=== PATIENT | male | born 1950 | race Caucasian/White ===

== ENCOUNTER 2018-08-19 08:33 | Day surgery (SDC) | payer MEDICARE, MEDICAID ==
[2018-08-14 13:15] VITALS: BMI 27.1
[2018-08-19 09:11] LABS: BASO # 0.04 K/mm3 (0.0-2.0); BASO % 0.6 % (0.0-3.0); EOS # 0.2 (0.0-0.7); EOS % 2.8 % (1.5-5.0); GRAN # 3.97 (1.4-6.5); GRAN % 62.4 % (50.0-68.0); HEMOGLOBIN 12.1 g/dL (14.0-18.0); LYMPH # 1.9 (1.2-3.4); LYMPH % 29.5 % (22.0-35.0); MEAN CELL VOLUME 94.5 fl (80.0-105.0); MEAN CORPUSCULAR HEMOGLOBIN 30.4 pg (25.0-35.0); MEAN CORPUSCULAR HGB CONC 32.2 g/dl (31.0-37.0); MEAN PLATELET VOLUME 10.5 fl (7.0-11.0); MONO # 0.3 (0.1-0.6); MONO % 4.7 % (1.0-6.0); RBC 3.98 10^6/uL (3.5-6.1); RED CELL DISTRIBUTION WIDTH 11.9 % (11.5-14.5); WHITE BLOOD COUNT 6.4 10^3/uL (4.5-11.0)
[2018-08-19 09:14] LABS: INR 0.98; PARTIAL THROMBOPLASTIN TIME 27.1 Seconds (25.1-36.5); PROTHROMBIN TIME 11.3 SECONDS (9.4-12.5)
[2018-08-19 09:24] LABS: CALCIUM 8.7 mg/dL (8.4-10.5)
[2018-08-19] MEDS ORDERED: Lidocaine 2% Inj (20ml) ONE (13:44)
[2018-08-19] MEDS ORDERED: Iodixanol 320 MG/ML 200 ML BOTTLE IV ONE (13:50)
[2018-08-19] MEDS ORDERED: Midazolam 2 MG/2 ML VIAL ONE ×2 (14:09→14:21)
--- NOTE | 2018-08-19 15:42 | VASCULAR ---
PROCEDURE: Bilateral selective renal arteriogram HISTORY: Poorly controlled hypertension. Renal insufficiency. Small right kidney. Evaluate for renal artery stenosis and ischemic nephropathy PHYSICIAN(S): Cortez Fernandes MD. TECHNIQUE: The relative risks and indications of the procedure were explained to the patient and consent obtained. The patient was hydrated prior to the procedure and the appropriate labs drawn. The patient was placed supine on the arteriogram table and the right groin prepped and draped in the usual sterile fashion. Conscious sedation and monitoring were provided throughout the procedure by a nurse. Via a right common femoral artery approach, a 5 [place] sheath was placed in the right groin. Through the sheath and over a guidewire, a 5 [place] flush catheter was placed in the abdominal aorta at the level of the renal arteries and a PA DSA abdominal aortogram performed. The catheter was exchanged for a 5 [place] African C2 catheter which was placed selectively in both renal arteries. Bilateral selective renal artery angiograms were obtained. The sheath was removed hemostasis obtained with a Perclose device. The patient tolerated the procedure well FINDINGS: There are single renal arteries bilaterally. The right kidney is smaller than the left. The left renal artery is widely patent. There is mild 30 percent disease of the proximal right renal artery. IMPRESSION: 1. No radiographic evidence of significant renal artery stenosis. 2. Small right kidney.
[2018-08-19] MEDS: Sodium Chloride 0.45% 1,000 ML IV SCH (16:30)
[2018-08-20 06:26] VITALS: RESP 18
[2018-08-20 06:27] VITALS: O2SAT 97
[2018-08-20 08:01] LABS: CALCIUM 8.6 mg/dL (8.4-10.5)
[2018-08-20] MEDS: Sodium Chloride 0.45% 1,000 ML IV SCH (09:27)
[2018-08-20 11:51] VITALS: BP 119/72; PULSE 65; TEMP 98
--- NOTE | 2018-08-20 19:43 | CON ---
DATE: 08/20/2018 REASON FOR CONSULTATION: Chronic kidney disease stage III, small right kidney, status post renal angiogram. HISTORY OF PRESENT ILLNESS: A 67-year-old male known to me from outpatient followup. The patient was found to have a small right kidney. He recently had a CABG. He reports that the renal function was normal prior to that. The patient was brought in for a renal angiogram. The patient underwent renal angiogram yesterday. He was hydrated pre procedure. The angiogram revealed wide open renal arteries. Currently, he is lying in bed. He is comfortable. PAST MEDICAL AND SURGICAL HISTORY: Hypertension, CAD, CABG, small right kidney. FAMILY HISTORY: Hypertension. SOCIAL HISTORY: No smoking, no alcohol use, no IV drug abuse. ALLERGIES: NO KNOWN DRUG ALLERGIES. MEDICATIONS: Ecotrin, Imdur, Lipitor, Lopressor 25 b.i.d., Neurontin, Pepcid, Plavix, half-normal saline at 80, Tylenol. REVIEW OF SYSTEMS: All systems are reviewed, pertinent positives as mentioned in the history of presenting illness, rest unremarkable. PHYSICAL EXAMINATION: GENERAL: Elderly male, lying in bed, in no acute distress. VITAL SIGNS: Blood pressure 119/72, heart rate 65, respiratory rate 18, temperature 98. HEENT: Normocephalic, atraumatic, positive pallor, no icterus. NECK: Supple, no JVD. LUNGS: Bilateral equal entry, bilateral equal expansion, no rales. CARDIAC: S1 and S2, regular rate and rhythm. No murmur, no rub. ABDOMEN: Soft, nondistended, nontender, bowel sounds present. EXTREMITIES: No lower extremity edema. INTAKE AND OUTPUT: 1085/1550. LABORATORY DATA: WBC 6.4, hemoglobin 12, hematocrit 37.6, platelets 300. Sodium 137, potassium 4.8, chloride 105, CO2 of 26, BUN 19, creatinine 1.7, it went down from 1.9. ASSESSMENT AND PLAN: 1. Stable chronic kidney disease stage III. 2. Status post renal angiogram, no evidence of renal artery stenosis. 3. Small right kidney. 4. Hypertension. 5. Coronary artery disease. PLAN: 1. Renal parameters are stable, 2. Hypertension is well controlled. 3. Discharge home. Blanche Sam MD [facility] # [id number]
== END 2018-08-20 14:36 | disposition home or self-care (01) ==
LOC: SDSVAS 08:33 → 2RSO 16:21 → SDSVAS 08-20 14:36
PROVIDERS: ATTEND Radiology Vascular & Interventional Radiology
DX: I12.9 Hypertensive chronic kidney disease with stage 1 through stage 4 chronic kidney disease, or unspecified chronic kidney disease (principal); N18.3 Chronic kidney disease, stage 3 (moderate); E11.22 Type 2 diabetes mellitus with diabetic chronic kidney disease; E78.00 Pure hypercholesterolemia, unspecified; N27.0 Small kidney, unilateral; I25.10 Atherosclerotic heart disease of native coronary artery without angina pectoris; Z79.82 Long term (current) use of aspirin; Z79.899 Other long term (current) drug therapy; Z95.1 Presence of aortocoronary bypass graft

== ENCOUNTER 2018-10-30 09:29 | Observation (INO) | payer MEDICARE, MEDICAID ==
[2018-10-30 09:32] VITALS: BMI 23.8
[2018-10-30 10:20] LABS: BASO # 0.03 K/mm3 (0.0-2.0); BASO % 0.4 % (0.0-3.0); EOS # 0.2 (0.0-0.7); EOS % 3.2 % (1.5-5.0); GRAN # 5.23 (1.4-6.5); GRAN % 71.8 % (50.0-68.0); HEMOGLOBIN 11.9 g/dL (14.0-18.0); LYMPH # 1.5 (1.2-3.4); LYMPH % 20.1 % (22.0-35.0); MEAN CELL VOLUME 93.9 fl (80.0-105.0); MEAN CORPUSCULAR HEMOGLOBIN 30.1 pg (25.0-35.0); MEAN CORPUSCULAR HGB CONC 32.1 g/dl (31.0-37.0); MEAN PLATELET VOLUME 10.2 fl (7.0-11.0); MONO # 0.3 (0.1-0.6); MONO % 4.5 % (1.0-6.0); RBC 3.95 10^6/uL (3.5-6.1); RED CELL DISTRIBUTION WIDTH 12.5 % (11.5-14.5); WHITE BLOOD COUNT 7.3 10^3/uL (4.5-11.0)
[2018-10-30 10:21] LABS: ALB/GLOB RATIO 1.3 (1.1-1.8); ALBUMIN 4.2 g/dL (3.0-4.8); ALT/SGPT 26 U/L (7-56); AST/SGOT 27 U/L (17-59); BLOOD UREA NITROGEN 29 mg/dL (7-21); CALCIUM 9.1 mg/dL (8.4-10.5); GFR NON-AFRICAN AMERICAN 43
[2018-10-30 10:22] LABS: INR 0.94; PARTIAL THROMBOPLASTIN TIME 24.9 Seconds (25.1-36.5); PROTHROMBIN TIME 10.8 SECONDS (9.4-12.5)
[2018-10-30 10:32] LABS: B-TYPE NATRIURETIC PEPTIDE 229 pg/mL (0-450); TROPONIN I < 0.01 ng/mL
--- NOTE | 2018-10-30 10:38 | RAD ---
Date of service: 10/30/2018 HISTORY: chest pain COMPARISON: No prior. FINDINGS: LUNGS: No active pulmonary disease. PLEURA: No significant pleural effusion identified, no pneumothorax apparent. CARDIOVASCULAR: No aortic atherosclerotic calcification present. Normal cardiac size. No pulmonary vascular congestion. OSSEOUS STRUCTURES: Sternal wires VISUALIZED UPPER ABDOMEN: Normal. OTHER FINDINGS: None. IMPRESSION: No active disease.
[2018-10-30] MEDS ORDERED: Sodium Chloride 0.9% 1,000 ML IV STA (11:01)
--- NOTE | 2018-10-30 11:12 | ED PDOC ---
Arrival/HPI - General Chief Complaint: Chest Pain Time Seen by Provider: 10/30/18 09:36 Historian: Patient - History of Present Illness Narrative History of Present Illness (Text): 10/30/18 12:08 68yo male with pmhx of hypertension, Diabetes, CAD s/p cardiac bypass bib EMS with complaint of dizziness nausea/vomiting and chest pain since this morning. Notes intermittent history of chest pain. states he started having dizziness this morning when he stood up and it persisted when he sat down. Describe dizziness as spinning sensation and then vomited x1. Denies previous history. Denies tinnitus, recent URI symptoms, diaphoresis, headache, focal weakness, abdominal pain, tearing/ripping upper back pain, nuchal ridigty, neck pain, any other complaint. Past Medical History - Provider Review Nursing Documentation Reviewed: Yes - Infectious Disease Hx of Infectious Diseases: None - Tetanus Immunization Tetanus Immunization: Unknown - Cardiac Hx Cardiac Disorders: Yes Hx Hypertension: Yes - Pulmonary Hx Respiratory Disorders: No - Neurological Hx Neurological Disorder: No - HEENT Hx HEENT Disorder: No - Renal Hx Renal Disorder: No - Endocrine/Metabolic Hx Diabetes Mellitus Type 2: Yes - Hematological/Oncological Hx Blood Disorders: No - Integumentary Hx Dermatological Disorder: No - Musculoskeletal/Rheumatological Hx Musculoskeletal Disorders: No - Gastrointestinal Hx Gastrointestinal Disorders: No - Genitourinary/Gynecological Hx Genitourinary Disorders: No - Psychiatric Hx Psychophysiologic Disorder: No Hx Substance Use: No - Surgical History Hx Coronary Artery Bypass Graft: Yes (double bypass last yr 2017) Other/Comment: nasal surgery 1999 - Anesthesia Hx Anesthesia: Yes Hx Anesthesia Reactions: No Hx Malignant Hyperthermia: No - Suicidal Assessment Feels Threatened In Home Enviroment: No Family/Social History - Physician Review Nursing Documentation Reviewed: Yes Family/Social History: Unknown Family HX Smoking Status: Current Some Days Smoker Hx Alcohol Use: No Hx Substance Use: No Hx Substance Use Treatment: No Allergies/Home Meds Allergies/Adverse Reactions: Allergies No Known Allergies Allergy (Verified 10/27/14 20:20) Home Medications: Home Meds Medication Instructions Recorded Confirmed Aspirin [Ecotrin] 81 mg PO DAILY 08/14/18 10/30/18 Atorvastatin [Lipitor] 40 mg PO DAILY 08/14/18 10/30/18 Dulaglutide [Trulicity] 0.75 mg SC MON 08/14/18 10/30/18 Isosorbide Mononitrate [Isosorbide 30 mg PO DAILY 08/14/18 10/30/18 Mononitrate ER] Clopidogrel [Plavix] 75 mg PO DAILY 08/19/18 10/30/18 Famotidine [Pepcid] 20 mg PO DAILY 08/19/18 10/30/18 Gabapentin [Neurontin] 100 mg PO TID 08/19/18 10/30/18 Metoprolol Tartrate [Lopressor] 1 tab PO BID 08/19/18 10/30/18 Review of Systems - Physician Review All systems were reviewed & negative as marked: Yes - Review of Systems Constitutional: Normal Eyes: Normal ENT: Normal Respiratory: Normal Cardiovascular: Chest Pain. absent: Palpitations, Edema, Calf Pain, [place] Gastrointestinal: Normal Genitourinary Male: Normal Musculoskeletal: Normal Skin: Normal Neurological: Dizziness Endocrine: Normal Hemo/Lymphatic: Normal Psychiatric: Normal Physical Exam Vital Signs Reviewed: Yes Vital Signs Temp Pulse Resp BP Pulse Ox 10/30/18 09:38 97.5 F L 68 18 134/67 95 Temperature: Afebrile Blood Pressure: Normal Pulse: Regular Respiratory Rate: Normal Appearance: Positive for: Well-Appearing, Non-Toxic, Comfortable Pain Distress: None Mental Status: Positive for: Alert and Oriented X 3 - Systems Exam Head: Present: Atraumatic, Normocephalic Pupils: Present: PERRL Extroacular Muscles: Present: EOMI Conjunctiva: Present: Normal Mouth: Present: Moist Mucous Membranes Neck: Present: Normal Range of Motion Respiratory/Chest: Present: Clear to Auscultation, Good Air Exchange. No: Respiratory Distress, Accessory Muscle Use, Wheezes, Decreased Breath Sounds, Rales, Retracting, Rhonchi Cardiovascular: Present: Regular Rate and Rhythm, Normal S1, S2. No: Murmurs Abdomen: No: Tenderness, Distention, Peritoneal Signs Back: Present: Normal Inspection Upper Extremity: Present: Normal Inspection. No: Cyanosis, Edema Lower Extremity: Present: Normal Inspection. No: Edema Neurological: Present: GCS=15, CN II-XII Intact, Speech Normal, Motor Func Grossly Intact, Normal Sensory Function, Memory Normal, Other (No focal neurological deficit) Skin: Present: Warm, Dry, Normal Color. No: Rashes Psychiatric: Present: Alert, Oriented x 3, Normal Insight, Normal Concentration Medical Decision Making ED Course and Treatment: 10/30/18 12:13 68yo male in ED for dizziness, vomiting and chest pain since this morning Labs EKG Orthostatic htn Heart monitor chest xray Head CT ASA, Saline Labs was reviewed and mildly elevated Cr. was at his baseline. K of 5.2 notes at this time. Normal CE noted. Chest xray IMPRESSION: No active disease. EKG NSR @ 65bpm Head CT IMPRESSION: No evidence of acute intracranial hemorrhage mass effect or midline shift. Diffuse sinuses mucosal disease and complete opacification of the frontal sinuses suggestive of sinusitis. Pt was admitted for further evaluation to r/o neuro or cardiac cause of his symptoms. Case was DW Dr. Link and she accepted the pt for admission and saw the pt by the bedside. - Lab Interpretations Lab Results: PT 10.8 SECONDS (9.4-12.5) 10/30/18 10:00 INR 0.94 10/30/18 10:00 APTT 24.9 Seconds (25.1-36.5) L 10/30/18 10:00 Troponin I < 0.01 ng/mL 10/30/18 10:00 NT-Pro-B Natriuret Pep 229 pg/mL (0-450) 10/30/18 10:00 Total Bilirubin 0.6 mg/dL (0.2-1.3) 10/30/18 10:00 AST 27 U/L (17-59) 10/30/18 10:00 ALT 26 U/L (7-56) 10/30/18 10:00 Alkaline Phosphatase 54 U/L (38-126) 10/30/18 10:00 Total Protein 7.4 g/dL (5.8-8.3) 10/30/18 10:00 Albumin 4.2 g/dL (3.0-4.8) 10/30/18 10:00 Globulin 3.2 gm/dL 10/30/18 10:00 Albumin/Globulin Ratio 1.3 (1.1-1.8) 10/30/18 10:00 - RAD Interpretation Radiology Orders: 10/30/18 09:47 CHEST PORTABLE [RAD] Stat - Medication Orders Current Medication Orders: Sodium Chloride (Sodium Chloride 0.9%) 1,000 mls @ 100 mls/hr IV .Q10H STA Stop: 10/30/18 21:00 Discontinued Medications Aspirin (Aspirin) 325 mg PO ONCE ONE Stop: 10/30/18 11:02 Disposition/Present on Arrival - Present on Arrival Any Indicators Present on Arrival: No History of DVT/PE: No History of Uncontrolled Diabetes: No Urinary Catheter: No History of Decub. Ulcer: No History Surgical Site Infection Following: None - Disposition Have Diagnosis and Disposition been Completed?: Yes Diagnosis: Chest pain, Dizziness, Renal insufficiency, Sinusitis Disposition: HOSPITALIZED Disposition Time: 11:05 Condition: FAIR
--- NOTE | 2018-10-30 11:54 | CARD ---
APPROVED REPORT Date of service: 10/30/2018 EKG Measurement Heart [id number] <Conclusion> Normal sinus rhythm Normal ECG
--- NOTE | 2018-10-30 12:13 | CT ---
Date of service: 10/30/2018 PROCEDURE: CT HEAD WITHOUT CONTRAST. HISTORY: dizziness COMPARISON: None available. TECHNIQUE: Axial computed tomography images were obtained through the head/brain without intravenous contrast. Radiation dose: Total exam DLP = 1032.99 mGy-cm. This CT exam was performed using one or more of the following dose reduction techniques: Automated exposure control, adjustment of the mA and/or kV according to patient size, and/or use of iterative reconstruction technique. FINDINGS: HEMORRHAGE: No intracranial hemorrhage. BRAIN: No mass effect or edema. Mild volume loss and mild white matter changes likely represent chronic microvascular ischemic disease noted. VENTRICLES: Unremarkable. No hydrocephalus. CALVARIUM: Unremarkable. PARANASAL SINUSES: Zhbs-[id number]-[id number] mucosal thickening noted in the ethmoid maxillary and sphenoid sinuses. There is complete opacification of the frontal sinuses consistent with sinusitis. MASTOID AIR CELLS: Unremarkable as visualized. No inflammatory changes. OTHER FINDINGS: None. IMPRESSION: No evidence of acute intracranial hemorrhage mass effect or midline shift. Diffuse sinuses mucosal disease and complete opacification of the frontal sinuses suggestive of sinusitis.
[2018-10-30] MEDS: cefTRIAXone 1 gm 1 GM/100 ML BAG IVPB SCH (13:08)
[2018-10-30 14:33] LABS: URINE BILIRUBIN NEGATIVE (NEGATIVE); URINE BLOOD NEGATIVE (NEGATIVE); URINE GLUCOSE (UA) NEGATIVE (NEGATIVE); URINE LEUKOCYTE ESTERASE NEGATIVE Leu/uL (NEGATIVE); URINE PROTEIN NEGATIVE mg/dL (<30 mg/dL); URINE UROBILINOGEN 0.2 E.U./dL (<1 E.U./dL)
[2018-10-30 14:34] LABS: URINE APPEARANCE CLEAR (CLEAR); URINE COLOR YELLOW (YELLOW)
--- NOTE | 2018-10-30 15:10 | US ---
PROCEDURE: Bilateral carotid artery duplex ultrasound HISTORY: Carotid stenosis syncope PHYSICIAN(S): Cortez Fernandes MD. TECHNIQUE: Duplex sonography and color-flow Doppler were used to evaluate the carotid bifurcations and limited segments of the vertebral arteries bilaterally. FINDINGS: There is mild to moderate diffuse smooth heterogeneous plaque noted at the carotid bifurcations bilaterally. The peak systolic velocity in the proximal right internal carotid artery is 103 cm/sec. This corresponds to a 20 to 39% proximal right ICA stenosis. Normal systolic velocities are noted in the proximal right external carotid artery. There is antegrade flow in the right vertebral artery. The peak systolic velocity in the proximal left internal carotid artery is 119 cm/sec. This corresponds to a 40-59 percent proximal left ICA stenosis. Normal systolic velocities are noted in the proximal left external carotid artery. There is antegrade flow in the left vertebral artery. IMPRESSION: 1. 40-59 percent proximal left ICA stenosis. 2. 20-39 percent proximal right ICA stenosis. 3. Antegrade flow in both vertebral arteries
[2018-10-30] MEDS: Insulin Lispro (humaLOG) MEDIUM Coverage SC SCH ×2 (17:23→22:19)
--- NOTE | 2018-10-30 17:37 | CON ---
DATE: 10/30/2018 CHIEF COMPLAINT: Dizziness. HISTORY OF PRESENT ILLNESS: A 68-year-old man with history of type 2 diabetes mellitus, hypertension, coronary artery disease status post cardiac bypass, and on aspirin, Plavix, and atorvastatin. He came with dizziness, and sitting position and had vomited once with intermittent chest pain. He denied any focal weakness with extremities. No change in sense of vision, taste, or smell. His dizziness is somewhat improved. He is not eating. High potassium of 5.2 and BUN and creatinine elevation of 1.6 likely secondary dehydration from vomiting. Carotid Doppler show 49% to 59% possible proximal left ICA stenosis in 29% to 39% proximal right aortic stenosis with anterior arteries. CAT scan of the head showed no acute intracranial abnormalities. PAST MEDICAL HISTORY: As above. SOCIAL HISTORY: No illicit drug use, smoking or EtOH abuse. ALLERGIES: NO KNOWN DRUG ALLERGIES. FAMILY HISTORY: Noncontributory. MEDICATIONS: Reviewed by nurses' reconciliation sheet. REVIEW OF SYSTEMS: A 14-point review of systems is negative except as per HPI. LABORATORY DATA: Sodium is 141, potassium 5.2, chloride 104 carbon dioxide 29, BUN of 39, creatinine 1.6, and random glucose 135. PHYSICAL EXAMINATION GENERAL: The patient is up in bed and in no acute distress. VITAL SIGNS: Temperature 97.5, pulse rate of 66, blood pressure 137/90, respiratory rate of 18 and oxygen saturation of 97% on room air. HEENT: Atraumatic and normocephalic. PERRLA. Extraocular muscles intact. NECK: Supple. No JVD. No adenopathy noted. LUNGS: Clear to auscultation. No adventitious sounds. HEART: S1 and S2 normal. Normal rate and rhythm. No murmurs, rubs or gallops. ABDOMEN: Soft, nontender and nondistended. Bowel sounds are present. EXTREMITIES: No clubbing and no cyanosis. Peripheral pulses are 2+ felt bilaterally. NEUROLOGICAL: The patient is alert and oriented to person, place, month, and year. Speech is fluent without any errors. Cranial nerves II through XII are intact. Motor exam; moves all extremities equally. Toes are downgoing bilaterally. Sensory; decreased light touch and pinprick up to the calves bilaterally and decreased vibration of the toes. DTRs are 2+ throughout and 1 at both knees and absent at the ankles. Coordination; tlakoh-[id number]-[id number] is intact. No dysmetria noted. Gait is deferred for now. IMPRESSION: Dizziness is more of a positional vertigo, which was associated with vomiting. RECOMMENDATIONS: 1. Meclozine 25 mg p.o. b.i.d. for onset of dizziness and in addition possible outpatient vestibular therapy. 2. Keep blood sugar to 140 to 180. 3. Given the patient has some diabetic neuropathy, I recommend diabetic diet and continue with gabapentin 100 mg p.o. t.i.d. three times a day for neuropathic relief. 4. Continue with aspirin 81 mg, Plavix 75, and Lipitor 40 mg for stroke prevention as well as coronary artery disease. 5. He is clinically stable. Thank you for this consult. Dipak Velasquez MD
--- NOTE | 2018-10-30 20:34 | HP ---
DATE OF EXAM: 10/30/2018 HISTORY OF PRESENT ILLNESS: The patient is a 68-year-old, seen and examined, and daughter by the bedside. He states when he woke up this morning when he rolled his head to sit up and get his shoes, he felt extremely dizzy as if he is going to pass out. Denies any fever or chills. He states he went to bed perfectly fine. He did throw up 1 time because of his extreme dizziness. There is no recent history of any upper respiratory tract infection. No history of nausea, but still vomiting. PAST MEDICAL HISTORY: Significant for: 1. Hypertension. 2. Hyperlipidemia. 3. Coronary artery disease, he had open heart surgery in 09/2017. 4. Vle-hqawwhp-scynifqqa diabetes. ALLERGIES: HE IS NOT ALLERGIC TO ANY MEDICATIONS. MEDICATIONS AT HOME: He is on metoprolol 25 b.i.d., isosorbide 30 mg daily, gabapentin 100 three times a day, famotidine 20 mg daily, Trulicity 0.5 weekly, Plavix 75 daily, atorvastatin 40 mg daily, and aspirin 81 daily. SOCIAL HISTORY: He smokes off and on. PHYSICAL EXAMINATION: GENERAL: He is awake, alert, and able to communicate. VITAL SIGNS: He is afebrile, pulse 60, respirations 18, and blood pressure 130/79. LUNGS: Bilateral fair air flow. No rhonchi or crackle. HEART: S1 and S2 audible. ABDOMEN: Soft and nontender. No rebound. No guarding. NEUROLOGICAL: The patient is awake, alert, oriented, and communicative. LABORATORY DATA: WBC is 7.3, hemoglobin 11.9, hematocrit 37, and platelets 249. PT 10.8 and INR 0.94. Chemistry; sodium 141, potassium 5.2, chloride 104, CO2 of 29, BUN 29, creatinine 1.6, and blood sugar 136. LFTs are within normal limits. Troponin is 0.01. CT scan of the head; no evidence of acute intracranial hemorrhage, mass effect, no midline shift, diffuse sinus mucosal disease, and complete opacification of the frontal sinus suggestive of sinusitis. ASSESSMENT: 1. Vertigo, rule out basilar insufficiency. 2. Hypertension. 3. Yav-zzzkcxi-dwhsbgjiq diabetes. 4. Hyperlipidemia. 5. Coronary artery disease, status post open heart surgery. PLAN: We will start the patient on IV fluids. Start him on IV antibiotics. Start him on antihistamine. Neuro consult by Dr. Velasquez has been requested. We will his medications. Awaiting carotid Doppler. We will followup all these blood work and test and make further disposition plan. Nicko Link MD
[2018-10-30] MEDS ORDERED: Influenza Vaccine 60 mcg/0.5 mL SYR (4YR UP) IM ONE (22:16)
[2018-10-30] MEDS ORDERED: Pneumococcal 23-Valent Vaccine IM ONE (22:16)
[2018-10-31 01:11] VITALS: O2SAT 97
[2018-10-31 06:33] VITALS: RESP 19; TEMP 98.6
[2018-10-31] MEDS: Insulin Lispro (humaLOG) MEDIUM Coverage SC SCH ×2 (09:35→12:33)
[2018-10-31] MEDS: cefTRIAXone 1 gm 1 GM/100 ML BAG IVPB SCH (09:35)
[2018-10-31 09:41] VITALS: BP 122/61; PULSE 93
--- NOTE | 2018-11-01 02:03 | DS ---
HISTORY OF PRESENT ILLNESS: The patient is 68-year-old who came in yesterday because of feeling extremely dizzy and when moving his head he felt as if he is going to pass out. PAST MEDICAL HISTORY: Significant for: 1. Hypertension. 2. Noninsulin-dependant diabetes. 3. Coronary artery disease. 4. Hyperlipidemia. 5. Coronary artery disease, status post open heart surgery. So the patient was placed in observation, had carotid Doppler done that shows no significant stenosis. CT scan of the head is negative. The patient was started on Antivert. He was evaluated by neurologist. Advise outpatient vestibular physical therapy. The patient was seen and examined today. He state he feeling a lot better. No more dizziness. He is walking to a bathroom without feeling dizzy. No nausea and vomiting. No diarrhea. Eating and tolerating. PHYSICAL EXAMINATION: VITAL SIGNS: He is afebrile. Pulse 62, respiration 19, blood pressure 122/61. LUNGS: Bilateral fair airflow. No rhonchi or crackle. HEART: S1 and S2, audible. ABDOMEN: Soft and nontender. No rebound. No guarding. NEUROLOGIC: The patient is awake, alert, oriented and communicative. LABORATORY DATA: Blood sugar is 93. He has bilateral carotid, left ICA 40%-59% and right is 20%-39%. CT scan of the head is negative. ASSESSMENT: 1. Dizziness and vertigo. 2. Hypertension. 3. Hyperlipidemia. 4. Coronary artery disease. 5. Noninsulin dependant diabetes. PLAN: The patient is being discharged today. Neuro workup is negative. He is followed by Dr. Velasquez as outpatient and he has given prescription of Antivert 12.5 t.i.d. p.r.n. Nicko Link MD
== END 2018-10-31 13:58 | disposition home or self-care (01) ==
LOC: ED 09:29 → ERH 11:41 → 2RNO 15:09
PROVIDERS: ADMIT Internal Medicine; ATTEND Internal Medicine
DX: R42 Dizziness and giddiness (principal); I10 Essential (primary) hypertension; E78.5 Hyperlipidemia, unspecified; I25.10 Atherosclerotic heart disease of native coronary artery without angina pectoris; E11.9 Type 2 diabetes mellitus without complications; E86.0 Dehydration; F17.200 Nicotine dependence, unspecified, uncomplicated; N28.9 Disorder of kidney and ureter, unspecified; Z79.02 Long term (current) use of antithrombotics/antiplatelets; Z79.82 Long term (current) use of aspirin; Z79.899 Other long term (current) drug therapy; Z95.1 Presence of aortocoronary bypass graft; I65.23 Occlusion and stenosis of bilateral carotid arteries
CPT/HCPCS: 36415; 70450; 71045; 80053; 81003; 82550; 82948; 83615; 83735; 83880; 84484; 85025; 85610; 85730; 93005; 93880; 96365; 96375; 96376; 99285; G0378; J0696; J2765; J7030